=== PATIENT | female | born 1990 | race Caucasian/White ===

== ENCOUNTER 2017-10-09 01:14 | Inpatient (IN) | payer OTHER ==
[~2017-10-09] VITALS: Ht 154.9 cm; Wt 45.2 kg
[2017-10-09] MEDS ORDERED: ONDANSETRON 2MG/ML, 2ML ONE (01:48)
[2017-10-09 01:57] LABS: BASOPHILS # (AUTO) 0.04 x10^3/uL (0-0.1); BASOPHILS % (AUTO) 0 % (0-1); EOSINOPHILS % (AUTO) 0 % (1-7); LYMPHOCYTES # (AUTO) 1.28 x10^3/uL (1-3.4); LYMPHOCYTES % (AUTO) 14 % (22-44); MD NO; MEAN CORPUSCULAR HEMOGLOBIN 29.6 pg (27.0-34.8); MEAN CORPUSCULAR HGB CONC 34.2 g/dL (32.4-35.8); MEAN CORPUSCULAR VOLUME 86.7 fL (80-100); MEAN PLATELET VOLUME 8.2 fL (7.4-10.4); MONOCYTES # (AUTO) 0.23 x10^3/uL (0.2-0.8); MONOCYTES % (AUTO) 3 % (2-9); NEUTROPHILS # (AUTO) 7.91 x10^3/uL (1.8-6.8); NEUTROPHILS % (AUTO) 84 % (42-75); PLATELET COUNT 384 x10^3/uL (130-400); RED BLOOD COUNT 5.16 x10^6/uL (3.82-5.3); RED CELL DISTRIBUTION WIDTH 13.4 % (9.6-15.2)
[2017-10-09] MEDS ORDERED: SODIUM CHLORIDE 0.9% 1,000ML IVBOLUS ONE ×2 (02:00→07:30)
[2017-10-09] MEDS ORDERED: SODIUM CHLORIDE FLUSH 10ML SYR IVF ONE (02:00)
[2017-10-09] MEDS ORDERED: ONDANSETRON 2MG/ML, 2ML IVPush ONE (02:00)
[2017-10-09 02:06] LABS: ALBUMIN 4.6 g/dL (3.4-5.0); ANION GAP 11 mmol/L (5-15); CALCIUM 9.5 mg/dL (8.5-10.1); CHLORIDE 95 mmol/L (98-107); CREATININE 0.74 mg/dL (0.55-1.02)
[2017-10-09 02:10] LABS: TROPONIN I < 0.015 ng/mL (0.000-0.045)
[2017-10-09] MEDS ORDERED: ACETAMINOPHEN 500 MG TABLET ONE (02:20)
[2017-10-09] MEDS ORDERED: POTASSIUM CHLORIDE 20 MEQ TAB.ER.PRT ONE (02:20)
[2017-10-09] MEDS ORDERED: POTASSIUM CHLORIDE 40 MEQ in SODIUM CHLORIDE 0.9% 500 ML IV ONE (02:30)
[2017-10-09] MEDS ORDERED: POTASSIUM CHLORIDE 20 MEQ TAB.ER.PRT PO ONE (02:30)
[2017-10-09] MEDS ORDERED: ACETAMINOPHEN 325 MG TABLET PO ONE (02:30)
[2017-10-09] MEDS ORDERED: METOCLOPRAMIDE 5 MG/ML, 2ML IVPush ONE (03:00)
[2017-10-09] MEDS ORDERED: METOCLOPRAMIDE 5 MG/ML, 2ML ONE (03:42)
[2017-10-09] MEDS ORDERED: KETOROLAC 30 MG/1 ML ONE (03:53)
[2017-10-09] MEDS ORDERED: ACETAMINOPHEN 325 MG TABLET PO PRN (04:00)
[2017-10-09] MEDS ORDERED: KETOROLAC 30 MG/1 ML IVPush ONE (04:00)
[2017-10-09] MEDS: POTASSIUM CHLORIDE 10% 40 MEQ/30 ML UDC PO SCH ×3 (04:39→22:09)
[2017-10-09] MEDS ORDERED: NS + 20MEQ KCL 1,000 ML IV ONE (06:58)
[2017-10-09] MEDS ORDERED: ONDANSETRON 2MG/ML, 2ML IVPush PRN (07:30)
[2017-10-09] MEDS: NS + 20MEQ KCL 1,000 ML IV SCH ×2 (08:27→16:25)
[2017-10-09 09:15] VITALS: BP 105/73
[2017-10-09] MEDS ORDERED: PROCHLORPERAZINE 5 MG/ML, 2ML IVPush PRN (10:00)
[2017-10-09] MEDS ORDERED: MAALOX/HYOSCYAMINE/LIDOCAINE 45 ML BTL PO PRN (11:00)
[2017-10-09 12:38] LABS: ANION GAP 7 mmol/L (5-15); CALCIUM 7.1 mg/dL (8.5-10.1); CHLORIDE 107 mmol/L (98-107); CREATININE 0.59 mg/dL (0.55-1.02)
[2017-10-09 13:18] VITALS: BP 105/73
[2017-10-09 16:00] VITALS: BP 90/47
[2017-10-09 16:18] LABS: CLOSTRIDIUM DIFFICILE ANTIGEN NEGATIVE; CLOSTRIDIUM DIFFICILE TOXIN NEGATIVE (Negative)
[2017-10-09] MEDS ORDERED: MAGNESIUM SULFATE PMX 2GM/50ML 50 ML IV ONE (20:00)
[2017-10-09] MEDS ORDERED: POTASSIUM PHOSPHATE 44 MEQ in SODIUM CHLORIDE 0.9% 500 ML IV ONE (20:00)
[2017-10-09 20:21] VITALS: BP 95/57
[2017-10-10 01:33] VITALS: BP 84/50
[2017-10-10] MEDS: NS + 20MEQ KCL 1,000 ML IV SCH ×2 (02:05→08:30)
[2017-10-10 02:12] VITALS: BP 90/52
[2017-10-10 05:36] LABS: ANION GAP 8 mmol/L (5-15); CHLORIDE 108 mmol/L (98-107)
[2017-10-10 05:38] LABS: CREATININE 0.46 mg/dL (0.55-1.02)
[2017-10-10 07:30] VITALS: BP 95/58
[2017-10-10] MEDS: POTASSIUM CHLORIDE 10% 40 MEQ/30 ML UDC PO SCH (09:00)
[2017-10-10] MEDS ORDERED: PROC10TA78 PO (09:11)
== END 2017-10-10 11:10 | disposition home or self-care (01) | DRG 391 ==
LOC: ED 01:57 → EDIP 02:51 → 4WST 08:37
PROVIDERS: ADMIT Hospitalist; ATTEND Hospitalist
DX: R11.2 Nausea with vomiting, unspecified (principal); E43 Unspecified severe protein-calorie malnutrition; Z68.1 Body mass index [BMI] 19.9 or less, adult; E83.42 Hypomagnesemia; E86.0 Dehydration; E87.6 Hypokalemia; K21.9 Gastro-esophageal reflux disease without esophagitis; Z88.0 Allergy status to penicillin; Z79.899 Other long term (current) drug therapy
CPT/HCPCS: 36415; 71045; 80048; 82040; 83735; 84100; 84484; 84703; 85025; 87324; 93005; 96361; 96365; 96366; 96375; J1885; J2405; J3480; J0780; J2765; J3475; J7030; J7040

== ENCOUNTER 2017-10-28 13:30 | Inpatient (IN) | payer OTHER ==
[~2017-10-28] VITALS: Ht 152.4 cm; Wt 50.0 kg
[~2017-10-28 13:30] MED LIST: PROC10TA78 PO
[2017-10-28] MEDS ORDERED: PROMETHAZINE 25 MG/ML, 1ML IM STA (14:41)
[2017-10-28] MEDS ORDERED: PROMETHAZINE 25 MG/ML, 1ML ONE (14:46)
[2017-10-28] MEDS ORDERED: FAMOTIDINE 20 MG/2 ML ONE (14:47)
[2017-10-28] MEDS ORDERED: ONDANSETRON 2MG/ML, 2ML ONE ×2 (14:47→17:24)
[2017-10-28] MEDS ORDERED: SODIUM CHLORIDE FLUSH 10ML SYR IVF ONE (15:00)
[2017-10-28] MEDS ORDERED: ONDANSETRON 2MG/ML, 2ML IVPush ONE ×2 (15:00→17:30)
[2017-10-28] MEDS ORDERED: SODIUM CHLORIDE 0.9% 1,000ML IVBOLUS ONE (15:00)
[2017-10-28] MEDS ORDERED: FAMOTIDINE 20 MG/2 ML IVP ONE (15:00)
[2017-10-28 15:06] LABS: BASOPHILS # (AUTO) 0.05 x10^3/uL (0-0.1); BASOPHILS % (AUTO) 1 % (0-1); EOSINOPHILS # (AUTO) 0.01 x10^3/uL (0-0.4); EOSINOPHILS % (AUTO) 0 % (1-7); LYMPHOCYTES # (AUTO) 1.61 x10^3/uL (1-3.4); LYMPHOCYTES % (AUTO) 21 % (22-44); MD NO; MEAN CORPUSCULAR HEMOGLOBIN 29.9 pg (27.0-34.8); MEAN CORPUSCULAR HGB CONC 34.5 g/dL (32.4-35.8); MEAN CORPUSCULAR VOLUME 86.6 fL (80-100); MONOCYTES # (AUTO) 0.36 x10^3/uL (0.2-0.8); MONOCYTES % (AUTO) 5 % (2-9); NEUTROPHILS # (AUTO) 5.67 x10^3/uL (1.8-6.8); NEUTROPHILS % (AUTO) 74 % (42-75); PLATELET COUNT 368 x10^3/uL (130-400); RED BLOOD COUNT 5.45 x10^6/uL (3.82-5.3); RED CELL DISTRIBUTION WIDTH 13.1 % (9.6-15.2)
[2017-10-28 15:15] LABS: ALANINE AMINOTRANSFERASE 10 U/L (12-78); ALBUMIN 4.6 g/dL (3.4-5.0); CREATININE 0.78 mg/dL (0.55-1.02)
[2017-10-28 15:20] LABS: ALKALINE PHOSPHATASE 43 U/L (45-117); BILIRUBIN,TOTAL 0.5 mg/dL (0.2-1.0); TOTAL PROTEIN 8.6 g/dL (6.4-8.2)
[2017-10-28 15:23] LABS: ANION GAP 10 mmol/L (5-15); CHLORIDE 99 mmol/L (98-107)
[2017-10-28] MEDS ORDERED: POTASSIUM CHLORIDE 20 MEQ TAB.ER.PRT ONE (15:39)
[2017-10-28] MEDS ORDERED: MAGNESIUM SULFATE PMX 2GM/50ML 50 ML IV ONE (16:00)
[2017-10-28] MEDS ORDERED: POTASSIUM CHLORIDE 40 MEQ in SODIUM CHLORIDE 0.9% 500 ML IV ONE (16:00)
[2017-10-28] MEDS ORDERED: POTASSIUM CHLORIDE 20 MEQ TAB.ER.PRT PO ONE (16:00)
[2017-10-28] MEDS ORDERED: ONDANSETRON ODT 4 MG PO PRN (17:30)
[2017-10-28] MEDS ORDERED: ONDANSETRON 2MG/ML, 2ML IVPush PRN (17:30)
[2017-10-28] MEDS ORDERED: PROMETHAZINE 25 MG/ML, 1ML IM PRN (17:30)
[2017-10-28 19:40] VITALS: BP 108/70
[2017-10-28 20:51] LABS: MICROSCOPIC AUTO
[2017-10-28 20:56] LABS: CULTURE INDICATED? NO
[2017-10-28] MEDS: ENOXAPARIN 40 MG/0.4 ML SQ SCH (21:29)
[2017-10-28] MEDS: NS + 20MEQ KCL 1,000 ML IV SCH (21:29)
[2017-10-28 22:36] LABS: ANION GAP 11 mmol/L (5-15); CALCIUM 7.7 mg/dL (8.5-10.1); CHLORIDE 105 mmol/L (98-107); CREATININE 0.62 mg/dL (0.55-1.02)
[2017-10-29] MEDS ORDERED: OXYM15SP8 NAS (01:56)
[2017-10-29 02:00] VITALS: BP 90/47
[2017-10-29] MEDS ORDERED: ONDA4TAB13 SL (04:37)
[2017-10-29 04:41] VITALS: BP 118/70
[2017-10-29] MEDS: NS + 20MEQ KCL 1,000 ML IV SCH (04:51)
[2017-10-29 05:32] LABS: CALCIUM 7.3 mg/dL (8.5-10.1); CHLORIDE 104 mmol/L (98-107)
[2017-10-29 05:46] LABS: ALANINE AMINOTRANSFERASE 12 U/L (12-78); ALBUMIN 3.3 g/dL (3.4-5.0); ALKALINE PHOSPHATASE 31 U/L (45-117); ANION GAP 12 mmol/L (5-15); BILIRUBIN,TOTAL 0.8 mg/dL (0.2-1.0); CREATININE 0.63 mg/dL (0.55-1.02); THYROID STIMULATING HORMONE 0.734 mIU/L (0.358-3.740); TOTAL PROTEIN 5.9 g/dL (6.4-8.2)
[2017-10-29] MEDS ORDERED: POTASSIUM CHLORIDE 20 MEQ PACKET PO ONE (08:00)
[2017-10-29 08:43] VITALS: BP 94/58
[2017-10-29] MEDS: POTASSIUM CHLORIDE 10% 40 MEQ/30 ML UDC PO SCH ×2 (08:46→16:55)
[2017-10-29] MEDS ORDERED: POTASSIUM CHLORIDE 20 MEQ TAB.ER.PRT PO SCH (09:00)
[2017-10-29] MEDS: POTASSIUM CHLORIDE 40 MEQ in D5%-0.9% NACL 1,000 ML IV SCH ×2 (11:33→19:50)
[2017-10-29 14:31] VITALS: BP 97/57
[2017-10-29] MEDS: OXYMETAZOLINE NASAL SPRAY 0.05%, 15ML NAS PRN (17:00)
[2017-10-29 19:01] LABS: CHLORIDE,URINE RANDOM 214 mmol/L; SODIUM,URINE RANDOM 150 mmol/L
[2017-10-29] MEDS ORDERED: MAALOX/HYOSCYAMINE/LIDOCAINE 45 ML BTL PO ONE (19:30)
[2017-10-29 20:00] VITALS: BP 100/63
[2017-10-29] MEDS: ENOXAPARIN 40 MG/0.4 ML SQ SCH (20:20)
[2017-10-30] MEDS: POTASSIUM CHLORIDE 10% 40 MEQ/30 ML UDC PO SCH ×3 (01:12→17:30)
[2017-10-30 02:00] VITALS: BP 93/56
[2017-10-30] MEDS: POTASSIUM CHLORIDE 40 MEQ in D5%-0.9% NACL 1,000 ML IV SCH ×2 (02:52→15:53)
[2017-10-30 05:31] LABS: ANION GAP 5 mmol/L (5-15); CALCIUM 7.8 mg/dL (8.5-10.1); CHLORIDE 109 mmol/L (98-107); CREATININE 0.54 mg/dL (0.55-1.02)
[2017-10-30 07:20] VITALS: BP_SYST 84; BP_SYST 87; BP_DIAS 56; BP_DIAS 58
[2017-10-30] MEDS ORDERED: PROPOFOL 50 ML ONE (09:31)
[2017-10-30] MEDS ORDERED: MIDAZOLAM 1 MG/ML, 2ML ONE (09:32)
[2017-10-30] MEDS ORDERED: KETOROLAC 30 MG/1 ML ONE (09:48)
[2017-10-30] MEDS ORDERED: ONDANSETRON 2MG/ML, 2ML ONE (09:48)
[2017-10-30] MEDS ORDERED: MAGNESIUM SULFATE PMX 4GM/100M 100 ML IV ONE (11:00)
[2017-10-30] MEDS ORDERED: HYDROcodone/APAP 7.5-325MG/15ML UDC PO PRN (11:30)
[2017-10-30] MEDS ORDERED: FENTANYL PF 100 MCG/2ML IV PRN (11:30)
[2017-10-30] MEDS ORDERED: EPHEDRINE 50 MG/ML, 1ML IVPush PRN (11:30)
[2017-10-30] MEDS ORDERED: MIDAZOLAM 1 MG/ML, 2ML IV PRN (11:30)
[2017-10-30] MEDS ORDERED: ONDANSETRON 2MG/ML, 2ML IVPush PRN (11:30)
[2017-10-30] MEDS ORDERED: PROMETHAZINE 12.5 MG SUPP PR PRN (11:30)
[2017-10-30] MEDS ORDERED: ALBUTEROL SULFATE 2.5 MG/3 ML NPPB PRN (11:30)
[2017-10-30] MEDS ORDERED: OXYcodone 5 MG/5 ML ORAL.SOL UDC PO PRN (11:30)
[2017-10-30] MEDS ORDERED: DIAZEPAM 5 MG/ML, 2ML IVPush PRN (11:30)
[2017-10-30] MEDS ORDERED: MEPERIDINE/PF 25MG/0.5ML IVPush PRN (11:30)
[2017-10-30] MEDS ORDERED: ACETAMINOPHEN 325 MG TABLET PO PRN (11:30)
[2017-10-30] MEDS ORDERED: PROMETHAZINE 25 MG/ML, 1ML IV PRN (11:30)
[2017-10-30 12:02] VITALS: BP 100/77
[2017-10-30] MEDS ORDERED: POTASSIUM PHOSPHATE 44 MEQ in SODIUM CHLORIDE 0.9% 500 ML IV ONE (15:00)
[2017-10-30 15:48] LABS: CREATININE,URINE RANDOM < 13.00 mg/dL
[2017-10-30 18:47] VITALS: BP 99/71
[2017-10-30] MEDS: ENOXAPARIN 40 MG/0.4 ML SQ SCH (20:18)
[2017-10-30] MEDS: OXYMETAZOLINE NASAL SPRAY 0.05%, 15ML NAS PRN (20:18)
[2017-10-30 21:48] LABS: ANION GAP 6 mmol/L (5-15); CALCIUM 7.7 mg/dL (8.5-10.1); CHLORIDE 108 mmol/L (98-107); CREATININE 0.57 mg/dL (0.55-1.02)
[2017-10-30 21:49] LABS: ALBUMIN 3.2 g/dL (3.4-5.0)
[2017-10-31] MEDS: POTASSIUM CHLORIDE 10% 40 MEQ/30 ML UDC PO SCH (01:19)
[2017-10-31 01:31] VITALS: BP 89/49
[2017-10-31] MEDS: ACETAMINOPHEN 325 MG TABLET PO PRN ×2 (03:19→21:09)
[2017-10-31] MEDS ORDERED: CHOLECALCIFEROL 1,000 UNIT TABLET PO SCH (09:00)
[2017-10-31 09:13] VITALS: BP 95/60
[2017-10-31] MEDS ORDERED: ERGOCALCIFEROL 50,000 UNIT CAPSULE PO SCH (10:00)
[2017-10-31 15:34] VITALS: BP 99/64
[2017-10-31 19:38] VITALS: BP 102/68
[2017-11-01] VITALS (7 sets, daily range): BP systolic 93–124; BP diastolic 60–88
[2017-11-01] MEDS ORDERED: COSYNTROPIN 0.25 MG IV ONE ×2 (05:00→06:00)
[2017-11-01 06:00] LABS: BASOPHILS # (AUTO) 0.05 x10^3/uL (0-0.1); BASOPHILS % (AUTO) 1 % (0-1); EOSINOPHILS # (AUTO) 0.16 x10^3/uL (0-0.4); EOSINOPHILS % (AUTO) 2 % (1-7); LYMPHOCYTES # (AUTO) 3.09 x10^3/uL (1-3.4); LYMPHOCYTES % (AUTO) 45 % (22-44); MD NO; MEAN CORPUSCULAR HGB CONC 34.2 g/dL (32.4-35.8); MEAN CORPUSCULAR VOLUME 87.8 fL (80-100); MEAN PLATELET VOLUME 8.6 fL (7.4-10.4); MONOCYTES # (AUTO) 0.49 x10^3/uL (0.2-0.8); MONOCYTES % (AUTO) 7 % (2-9); NEUTROPHILS # (AUTO) 3.15 x10^3/uL (1.8-6.8); NEUTROPHILS % (AUTO) 45 % (42-75); PLATELET COUNT 300 x10^3/uL (130-400); RED BLOOD COUNT 4.72 x10^6/uL (3.82-5.3); RED CELL DISTRIBUTION WIDTH 13.4 % (9.6-15.2)
[2017-11-01 06:04] LABS: CHLORIDE 104 mmol/L (98-107)
[2017-11-01 06:17] LABS: ALANINE AMINOTRANSFERASE 18 U/L (12-78); ALBUMIN 3.8 g/dL (3.4-5.0); ALKALINE PHOSPHATASE 35 U/L (45-117); ANION GAP 9 mmol/L (5-15); BILIRUBIN,TOTAL 0.5 mg/dL (0.2-1.0); CALCIUM 8.7 mg/dL (8.5-10.1); CREATININE 0.72 mg/dL (0.55-1.02)
[2017-11-01] MEDS ORDERED: MAGNESIUM SULFATE PMX 4GM/100M 100 ML IV ONE (06:30)
[2017-11-01] MEDS: POTASSIUM CHLORIDE 20 MEQ TAB.ER.PRT PO SCH ×3 (06:40→21:19)
[2017-11-01] MEDS ORDERED: OMNIPAQUE 350 MG/ML, 100ML BOTTLE ONE (11:26)
[2017-11-01] MEDS ORDERED: AMITRIPTYLINE 25 MG TABLET PO SCH (21:00)
[2017-11-02 03:04] VITALS: BP 97/65
[2017-11-02 03:05] VITALS: BP_SYST 138; BP_SYST 98; BP_DIAS 101; BP_DIAS 67
[2017-11-02] MEDS: POTASSIUM CHLORIDE 20 MEQ TAB.ER.PRT PO SCH (06:22)
[2017-11-02 07:10] VITALS: BP 103/72
[2017-11-02 07:46] LABS: ALBUMIN 3.9 g/dL (3.4-5.0); ANION GAP 7 mmol/L (5-15); CALCIUM 8.9 mg/dL (8.5-10.1); CHLORIDE 103 mmol/L (98-107); CREATININE 0.76 mg/dL (0.55-1.02)
[2017-11-02] MEDS ORDERED: AMIT25TA PO (08:55)
[2017-11-02] MEDS ORDERED: ERGO500017 PO (08:55)
== END 2017-11-02 13:15 | disposition home or self-care (01) | DRG 392 ==
LOC: ED 17:09 → EDIP 17:10 → ED 17:13 → 4WST 18:37 → DCLOUNGE 11-02 13:00
PROVIDERS: ADMIT Internal Medicine; ATTEND Hospitalist
PROC: 0DJ08ZZ Inspection of Upper Intestinal Tract, Via Natural or Artificial Opening Endoscopic (ICD-10-PCS; principal; 2017-10-30 09:30)
DX: K52.9 Noninfective gastroenteritis and colitis, unspecified (principal); K55.1 Chronic vascular disorders of intestine; I95.89 Other hypotension; K76.89 Other specified diseases of liver; E83.51 Hypocalcemia; E83.39 Other disorders of phosphorus metabolism; E83.42 Hypomagnesemia; G43.A0 Cyclical vomiting, in migraine, not intractable; K31.84 Gastroparesis; N83.201 Unspecified ovarian cyst, right side; N83.202 Unspecified ovarian cyst, left side; F12.90 Cannabis use, unspecified, uncomplicated; E86.0 Dehydration; T73.0XXA Starvation, initial encounter; N92.0 Excessive and frequent menstruation with regular cycle; K21.9 Gastro-esophageal reflux disease without esophagitis; E87.6 Hypokalemia; Z88.6 Allergy status to analgesic agent; Z87.891 Personal history of nicotine dependence; Z88.0 Allergy status to penicillin; Z79.899 Other long term (current) drug therapy; Z79.1 Long term (current) use of non-steroidal anti-inflammatories (NSAID); Z79.2 Long term (current) use of antibiotics
CPT/HCPCS: 36415; 74177; 78264; 80048; 80053; 81001; 82040; 82306; 82310; 82436; 82533; 82570; 83690; 83735; 83970; 84100; 84132; 84133; 84134; 84300; 84443; 84703; 85025; 93005; 96361; 96372; 96374; 96375; J1650; J1885; J2250; J2405; J2550; J2704; J3480; J7042; Q9967; A9541; C9898; J0834; J3475; J7030; J7040; S0028

== ENCOUNTER 2018-05-23 06:03 | Emergency (ER) | payer SELFPAY ==
[~2018-05-23] VITALS: Ht 157.5 cm; Wt 41.1 kg
[~2018-05-23 06:03] MED LIST changes: +AMIT25TA PO; +ERGO500017 PO; +ONDA4TAB13 SL; +OXYM15SP8 NAS
[2018-05-23] MEDS ORDERED: MAALOX/HYOSCYAMINE/LIDOCAINE 45 ML BTL PO ONE (06:30)
[2018-05-23] MEDS ORDERED: PROMETHAZINE 25 MG/ML, 1ML IM ONE (06:30)
[2018-05-23] MEDS ORDERED: SODIUM CHLORIDE 0.9% 1,000ML IVBOLUS ONE (06:30)
[2018-05-23] MEDS ORDERED: HALOPERIDOL 5 MG/ML IVPush ONE (06:30)
[2018-05-23] MEDS ORDERED: SODIUM CHLORIDE FLUSH 10ML SYR IVF ONE (06:30)
[2018-05-23] MEDS ORDERED: FAMOTIDINE 20 MG/2 ML IVP ONE (06:30)
[2018-05-23] MEDS ORDERED: MAALOX/HYOSCYAMINE/LIDOCAINE 45 ML BTL ONE (06:38)
[2018-05-23] MEDS ORDERED: HALOPERIDOL 5 MG/ML ONE (06:38)
[2018-05-23] MEDS ORDERED: FAMOTIDINE 20 MG/2 ML ONE (06:39)
[2018-05-23 06:48] LABS: BASOPHILS # (AUTO) 0.03 x10^3/uL (0-0.1); BASOPHILS % (AUTO) 0 % (0-1); EOSINOPHILS % (AUTO) 0 % (1-7); LYMPHOCYTES # (AUTO) 1.44 x10^3/uL (1-3.4); LYMPHOCYTES % (AUTO) 18 % (22-44); MD NO; MEAN CORPUSCULAR HEMOGLOBIN 29.8 pg (27.0-34.8); MEAN CORPUSCULAR HGB CONC 34.7 g/dL (32.4-35.8); MEAN PLATELET VOLUME 7.6 fL (7.4-10.4); MONOCYTES # (AUTO) 0.51 x10^3/uL (0.2-0.8); MONOCYTES % (AUTO) 6 % (2-9); NEUTROPHILS # (AUTO) 6.03 x10^3/uL (1.8-6.8); NEUTROPHILS % (AUTO) 75 % (42-75); PLATELET COUNT 355 x10^3/uL (130-400); RED BLOOD COUNT 5.08 x10^6/uL (3.82-5.3); RED CELL DISTRIBUTION WIDTH 13.1 % (9.6-15.2)
[2018-05-23 07:01] LABS: ALANINE AMINOTRANSFERASE 23 U/L (12-78); ALBUMIN 4.1 g/dL (3.4-5.0); CALCIUM 8.4 mg/dL (8.5-10.1); CHLORIDE 94 mmol/L (98-107); CREATININE 1.15 mg/dL (0.55-1.02)
[2018-05-23 07:06] LABS: ALKALINE PHOSPHATASE 51 U/L (45-117); BILIRUBIN,TOTAL 0.7 mg/dL (0.2-1.0); TOTAL PROTEIN 8.8 g/dL (6.4-8.2)
[2018-05-23 07:33] LABS: ANION GAP 14 mmol/L (5-15)
[2018-05-23] MEDS ORDERED: NS + 40MEQ KCL 1,000 ML IV ONE ×2 (08:00→08:08)
[2018-05-23] MEDS ORDERED: POTASSIUM CHLORIDE 20 MEQ TAB.ER.PRT ONE (08:14)
[2018-05-23] MEDS ORDERED: POTASSIUM CHLORIDE 20 MEQ TAB.ER.PRT PO ONE (08:30)
[2018-05-23 08:31] LABS: MICROSCOPIC AUTO
[2018-05-23 08:34] LABS: CULTURE INDICATED? YES
[2018-05-23 12:50] VITALS: BP 93/40
== END 2018-05-23 13:12 | disposition home or self-care (01) ==
LOC: ED 06:34
DX: E87.6 Hypokalemia (principal); R11.2 Nausea with vomiting, unspecified; K21.9 Gastro-esophageal reflux disease without esophagitis
CPT/HCPCS: 36415; 80053; 81001; 83690; 84703; 85025; 87086; 96361; 96365; 96366; 96375; 99285; J1630; J3480; J7030; S0028

== ENCOUNTER 2018-09-25 14:03 | Inpatient (IN) | payer SELFPAY ==
[~2018-09-25] VITALS: Ht 152.4 cm; Wt 47.0 kg
--- NOTE | 2018-09-25 14:29 | NUR ---
Pt in gown, given ua cup, states she is unable to go at this time, awaiting MD cain
[2018-09-25] MEDS ORDERED: DIPHENHYDRAMINE 50 MG/ML, 1ML ONE (14:53)
[2018-09-25] MEDS ORDERED: MORPHINE SULFATE 4 MG/ML, 1ML ONE (14:54)
[2018-09-25] MEDS ORDERED: METOCLOPRAMIDE 5 MG/ML, 2ML ONE (14:54)
[2018-09-25] MEDS ORDERED: FAMOTIDINE 20 MG/2 ML ONE (14:54)
[2018-09-25] MEDS ORDERED: DIPHENHYDRAMINE 50 MG/ML, 1ML IVPush ONE (15:00)
[2018-09-25] MEDS ORDERED: MORPHINE SULFATE 4 MG/ML, 1ML IVPush PRN (15:00)
[2018-09-25] MEDS ORDERED: FAMOTIDINE 20 MG/2 ML IVP ONE (15:00)
[2018-09-25] MEDS ORDERED: METOCLOPRAMIDE 5 MG/ML, 2ML IVPush ONE (15:00)
[2018-09-25] MEDS ORDERED: SODIUM CHLORIDE FLUSH 10ML SYR IVF ONE (15:00)
[2018-09-25 15:19] LABS: BASOPHILS # (AUTO) 0.08 x10^3/uL (0-0.1); BASOPHILS % (AUTO) 1 % (0-1); EOSINOPHILS % (AUTO) 0 % (1-7); LYMPHOCYTES # (AUTO) 1.36 x10^3/uL (1-3.4); LYMPHOCYTES % (AUTO) 10 % (22-44); MD NO; MEAN CORPUSCULAR HEMOGLOBIN 30.1 pg (27.0-34.8); MEAN CORPUSCULAR HGB CONC 34.2 g/dL (32.4-35.8); MEAN CORPUSCULAR VOLUME 87.8 fL (80-100); MEAN PLATELET VOLUME 8.3 fL (7.4-10.4); MONOCYTES # (AUTO) 0.43 x10^3/uL (0.2-0.8); MONOCYTES % (AUTO) 3 % (2-9); NEUTROPHILS # (AUTO) 12.06 x10^3/uL (1.8-6.8); NEUTROPHILS % (AUTO) 87 % (42-75); PLATELET COUNT 367 x10^3/uL (130-400); RED BLOOD COUNT 5.09 x10^6/uL (3.82-5.3); RED CELL DISTRIBUTION WIDTH 13.3 % (9.6-15.2)
[2018-09-25 15:31] LABS: ALBUMIN 4.6 g/dL (3.4-5.0); CALCIUM 9.1 mg/dL (8.5-10.1); CHLORIDE 92 mmol/L (98-107)
[2018-09-25 15:38] LABS: ALANINE AMINOTRANSFERASE 18 U/L (12-78); ALKALINE PHOSPHATASE 48 U/L (45-117); BILIRUBIN,TOTAL 1.2 mg/dL (0.2-1.0); CREATININE 0.89 mg/dL (0.55-1.02); TOTAL PROTEIN 8.2 g/dL (6.4-8.2)
[2018-09-25 15:40] LABS: MICROSCOPIC INDICATED
[2018-09-25 15:41] LABS: CULTURE INDICATED? NO
[2018-09-25 15:42] LABS: ANION GAP 17 mmol/L (5-15)
[2018-09-25] MEDS ORDERED: POTASSIUM CHLORIDE 40 MEQ in SODIUM CHLORIDE 0.9% 500 ML IV ONE (16:00)
--- NOTE | 2018-09-25 16:02 | NUR ---
Pt updated on labs (hypokalemia), meds infusing, ekg completed. Pt on cont cardiac and pulse ox monitoring. 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
--- NOTE | 2018-09-25 16:37 | NUR ---
Pt reports tolerable level of pain after med administration
--- NOTE | 2018-09-25 16:54 | NUR ---
Report to shaina wolfe. pt ready for transport.
[2018-09-25] MEDS ORDERED: ACETAMINOPHEN 325 MG TABLET PO PRN (17:00)
[2018-09-25] MEDS ORDERED: ENALAPRILAT 1.25 MG/ML, 2ML IVPush PRN (17:00)
[2018-09-25] MEDS ORDERED: DOCUSATE 100 MG CAPSULE PO PRN (17:00)
[2018-09-25] MEDS ORDERED: BISACODYL 10 MG SUPP PR PRN (17:00)
[2018-09-25] MEDS ORDERED: POLYETHYLENE GLYCOL 17 GM PACKET PO PRN (17:00)
[2018-09-25] MEDS ORDERED: ONDANSETRON 2MG/ML, 2ML IVPush PRN (17:00)
[2018-09-25] MEDS ORDERED: ENOXAPARIN 40 MG/0.4 ML SQ SCH (17:00)
[2018-09-25] MEDS ORDERED: MAGNESIUM SULFATE PMX 2GM/50ML 50 ML IV ONE (17:00)
[2018-09-25 17:32] VITALS: BP 144/75
[2018-09-25] MEDS: KETOROLAC 30 MG/1 ML IV PRN (18:42)
[2018-09-25] MEDS: POTASSIUM CHLORIDE 20 MEQ TAB.ER.PRT PO SCH (18:42)
[2018-09-25 19:34] VITALS: BP 101/67
[2018-09-25] MEDS: NS + 20MEQ KCL 1,000 ML IV SCH (23:08)
[2018-09-25 23:27] LABS: RAPID INFLUENZA A Negative (Negative); RAPID INFLUENZA B Negative (Negative)
[2018-09-26 02:24] VITALS: BP 89/49
[2018-09-26 02:33] VITALS: BP 92/54
[2018-09-26] MEDS: KETOROLAC 30 MG/1 ML IV PRN (04:18)
[2018-09-26 04:46] LABS: BASOPHILS # (AUTO) 0.04 x10^3/uL (0-0.1); BASOPHILS % (AUTO) 0 % (0-1); EOSINOPHILS # (AUTO) 0.06 x10^3/uL (0-0.4); EOSINOPHILS % (AUTO) 0 % (1-7); LYMPHOCYTES # (AUTO) 2.76 x10^3/uL (1-3.4); LYMPHOCYTES % (AUTO) 21 % (22-44); MD NO; MEAN CORPUSCULAR HEMOGLOBIN 29.8 pg (27.0-34.8); MEAN CORPUSCULAR HGB CONC 33.7 g/dL (32.4-35.8); MEAN CORPUSCULAR VOLUME 88.2 fL (80-100); MEAN PLATELET VOLUME 8.3 fL (7.4-10.4); MONOCYTES # (AUTO) 0.98 x10^3/uL (0.2-0.8); MONOCYTES % (AUTO) 8 % (2-9); NEUTROPHILS # (AUTO) 9.24 x10^3/uL (1.8-6.8); NEUTROPHILS % (AUTO) 71 % (42-75); PLATELET COUNT 303 x10^3/uL (130-400); RED BLOOD COUNT 4.41 x10^6/uL (3.82-5.3); RED CELL DISTRIBUTION WIDTH 13.4 % (9.6-15.2)
[2018-09-26 04:57] LABS: ANION GAP 10 mmol/L (5-15); CALCIUM 7.6 mg/dL (8.5-10.1); CHLORIDE 102 mmol/L (98-107); CREATININE 0.73 mg/dL (0.55-1.02)
[2018-09-26] MEDS ORDERED: POTASSIUM CHLORIDE 40 MEQ in SODIUM CHLORIDE 0.9% 500 ML IV ONE (07:30)
[2018-09-26] MEDS: NS + 20MEQ KCL 1,000 ML IV SCH (08:20)
[2018-09-26] MEDS: POTASSIUM CHLORIDE 20 MEQ TAB.ER.PRT PO SCH (08:30)
[2018-09-26 08:34] VITALS: BP 100/62
[2018-09-26] MEDS ORDERED: ONDA4TAB7 PO (14:38)
== END 2018-09-26 17:56 | disposition home or self-care (01) | DRG 641 ==
LOC: ED 15:14 → EDIP 16:46 → 4WST 17:14
PROVIDERS: ADMIT Hospitalist; ATTEND Hospitalist
DX: E87.6 Hypokalemia (principal); R17 Unspecified jaundice; E87.1 Hypo-osmolality and hyponatremia; E86.9 Volume depletion, unspecified; D72.828 Other elevated white blood cell count; F12.90 Cannabis use, unspecified, uncomplicated; F17.200 Nicotine dependence, unspecified, uncomplicated; R73.9 Hyperglycemia, unspecified; R79.89 Other specified abnormal findings of blood chemistry
CPT/HCPCS: 36415; 87400; J3490; 80048; 80053; 81001; 83690; 83735; 84132; 84703; 85025; 93005; 96374; 96375; G0378; J1650; J1885; J2405; J3480; J1200; J2765; J3475; J7040

== ENCOUNTER 2018-11-02 10:40 | Inpatient (IN) | payer SELFPAY ==
[~2018-11-02] VITALS: Ht 152.4 cm; Wt 47.5 kg
[~2018-11-02 10:40] MED LIST changes: +ONDA4TAB7 PO
[2018-11-02] MEDS ORDERED: PANTOPRAZOLE 40 MG IV ONE (11:25)
[2018-11-02] MEDS ORDERED: FAMOTIDINE 20 MG/2 ML ONE (11:25)
[2018-11-02 11:27] LABS: BASOPHILS # (AUTO) 0.05 x10^3/uL (0-0.1); BASOPHILS % (AUTO) 1 % (0-1); EOSINOPHILS # (AUTO) 0.12 x10^3/uL (0-0.4); EOSINOPHILS % (AUTO) 2 % (1-7); LYMPHOCYTES % (AUTO) 34 % (22-44); MD NO; MEAN CORPUSCULAR HEMOGLOBIN 29.8 pg (27.0-34.8); MEAN CORPUSCULAR HGB CONC 34.5 g/dL (32.4-35.8); MEAN CORPUSCULAR VOLUME 86.2 fL (80-100); MEAN PLATELET VOLUME 8.1 fL (7.4-10.4); MONOCYTES # (AUTO) 0.61 x10^3/uL (0.2-0.8); MONOCYTES % (AUTO) 8 % (2-9); NEUTROPHILS # (AUTO) 4.31 x10^3/uL (1.8-6.8); NEUTROPHILS % (AUTO) 56 % (42-75); PLATELET COUNT 386 x10^3/uL (130-400); RED BLOOD COUNT 5.45 x10^6/uL (3.82-5.3)
[2018-11-02] MEDS ORDERED: FAMOTIDINE 20 MG/2 ML IVPush ONE (11:30)
[2018-11-02] MEDS ORDERED: SODIUM CHLORIDE 0.9% 1,000ML IVBOLUS ONE (11:30)
[2018-11-02] MEDS ORDERED: PANTOPRAZOLE 40 MG IV IVPush ONE (11:30)
[2018-11-02 11:39] LABS: ALANINE AMINOTRANSFERASE 22 U/L (12-78); ALBUMIN 4.4 g/dL (3.4-5.0); ANION GAP 12 mmol/L (5-15); CALCIUM 9.4 mg/dL (8.5-10.1); CHLORIDE 100 mmol/L (98-107)
[2018-11-02 11:53] LABS: ALKALINE PHOSPHATASE 57 U/L (45-117); BILIRUBIN,TOTAL 0.9 mg/dL (0.2-1.0); CREATININE 0.81 mg/dL (0.55-1.02); TOTAL PROTEIN 8.4 g/dL (6.4-8.2)
[2018-11-02] MEDS ORDERED: POTASSIUM CHLORIDE 40 MEQ in SODIUM CHLORIDE 0.9% 500 ML IV ONE ×3 (12:00→17:00)
--- NOTE | 2018-11-02 12:56 | NUR ---
pt sitting up on gurney awake & calm, responds approp to staff, occas dry heaves, comfort measures provided, BF at BS, call light within reach.
--- NOTE | 2018-11-02 13:45 | NUR ---
LUNCH RN: PT UP TO RESTROOM WITH STEADY GAIT. BACK IN BED, ALL MONITORS IN PLACE. CALL LIGHT WITHIN REACH
[2018-11-02] MEDS ORDERED: ONDANSETRON 2MG/ML, 2ML IVPush PRN (14:00)
[2018-11-02] MEDS ORDERED: MAGNESIUM SULFATE PMX 2GM/50ML 50 ML IV ONE (14:00)
[2018-11-02] MEDS ORDERED: LABETALOL 5MG/ML, 20ML IVPush PRN (14:00)
--- NOTE | 2018-11-02 14:10 | NUR ---
pt upright on gurney able to doze off easily, responds approp to staff, comfort measures provided, call light within reach.
[2018-11-02 14:18] LABS: FREE T4 (FREE THYROXINE) 1.11 ng/dL (0.76-1.46)
[2018-11-02] MEDS ORDERED: HEPARIN 5,000 UNITS/ML, 1ML ONE ×2 (14:44→21:15)
[2018-11-02] MEDS: SODIUM CHLORIDE 0.9% 1,000 ML IV SCH ×6 (14:52→20:22)
[2018-11-02] MEDS: HEPARIN 5,000 UNITS/ML, 1ML SQ SCH ×2 (14:53→21:19)
--- NOTE | 2018-11-02 15:10 | NUR ---
pt remains upright on gurney able to doze off easily, responds approp to staff, comfort measures provided, call light within reach.
--- NOTE | 2018-11-02 16:05 | NUR ---
pt upright on gurney mostly sleeping, responds approp to staff, comfort measures provided, call light within reach.
--- NOTE | 2018-11-02 17:00 | NUR ---
pt remains upright on gurney able to doze off easily, responds approp to staff, comfort measures provided, call light within reach.
[2018-11-02 17:22] LABS: ANION GAP 11 mmol/L (5-15); CALCIUM 6.5 mg/dL (8.5-10.1); CHLORIDE 113 mmol/L (98-107)
[2018-11-02 17:26] LABS: TROPONIN I < 0.015 ng/mL (0.000-0.045)
--- NOTE | 2018-11-02 18:03 | NUR ---
pt upright on gurney mostly sleeping, responds approp to staff, comfort measures provided, call light within reach.
--- NOTE | 2018-11-02 18:59 | NUR ---
report given to Kimmie
--- NOTE | 2018-11-02 19:11 | NUR ---
pt up to rr with steady gait, provided pt with urine cup
[2018-11-02 19:44] LABS: HCG UR SG 1.015 (1.003-1.030); MICROSCOPIC NOT IND
[2018-11-02 19:47] LABS: CULTURE INDICATED? NO
[2018-11-02 20:00] LABS: AMPHETAMINE SCREEN, URINE Negative (Negative); BARBITURATE SCREEN, URINE Negative (Negative); BENZODIAZEPINE SCREEN, URINE Negative (Negative); CANNABINOID SCREEN, URINE Positive (Negative); COCAINE SCREEN, URINE Negative (Negative); METHADONE SCREEN, URINE Negative (Negative); OPIATE SCREEN, URINE Negative (Negative)
[2018-11-02] MEDS ORDERED: MAALOX/HYOSCYAMINE/LIDOCAINE 45 ML BTL ONE (20:25)
[2018-11-02] MEDS: MAALOX/HYOSCYAMINE/LIDOCAINE 45 ML BTL PO PRN (20:26)
[2018-11-02] MEDS ORDERED: morphine SULFATE 10 MG/ML, 1ML ONE (21:15)
[2018-11-02] MEDS: morphine SULFATE 10 MG/ML, 1ML IVPush PRN (21:23)
--- NOTE | 2018-11-02 21:24 | NUR ---
pt up to rr with steady gait. medicated with prn pain medication, see mar.
[2018-11-02 21:27] LABS: TROPONIN I < 0.015 ng/mL (0.000-0.045)
--- NOTE | 2018-11-02 23:19 | NUR ---
ASSISTED PT WITH TRANSFERRING ONTO HOSPITAL BED, MONITORS IN PLACE, IV FLUIDS INFUSING, CALL LIGHT WITHIN REACH.
[2018-11-02] MEDS ORDERED: PROMETHAZINE 25 MG/ML, 1ML ONE (23:21)
[2018-11-02] MEDS: PROMETHAZINE 25 MG/ML, 1ML IM PRN (23:26)
--- NOTE | 2018-11-02 23:31 | NUR ---
pt resting on gurney, stated "pain is better", monitors in place, call light within reach.
--- NOTE | 2018-11-03 03:50 | NUR ---
PT SITTING UP WATCHING TV, DENIES PAIN OR NAUSEA, PROVIDED PT WITH CLEAR LIQUIDS PER HER REQUEST, DENIES FURTHER NEEDS, MONITORS IN PLACE, CALL LIGHT WITHIN REACH. AWAITING ROOM FOR TRANSFER
[2018-11-03] MEDS: SODIUM CHLORIDE 0.9% 1,000 ML IV SCH ×3 (05:06→22:12)
--- NOTE | 2018-11-03 05:11 | NUR ---
DR GIBSON PAGED AND UPDATED R/G PT'S B/P-=, ORDER RECEIVED FOR NORMAL SALINE 1L IV BOLUS NOW.
[2018-11-03] MEDS ORDERED: SODIUM CHLORIDE 0.9% 1,000ML IVBOLUS ONE (05:30)
[2018-11-03] MEDS ORDERED: HEPARIN 5,000 UNITS/ML, 1ML ONE (05:30)
[2018-11-03 05:40] LABS: ALANINE AMINOTRANSFERASE 14 U/L (12-78); ALBUMIN 3.2 g/dL (3.4-5.0); ANION GAP 10 mmol/L (5-15); CALCIUM 6.8 mg/dL (8.5-10.1); CHLORIDE 107 mmol/L (98-107); CREATININE 0.68 mg/dL (0.55-1.02)
[2018-11-03 05:50] LABS: ALKALINE PHOSPHATASE 35 U/L (45-117); BILIRUBIN,TOTAL 0.6 mg/dL (0.2-1.0); THYROID STIMULATING HORMONE 0.467 mIU/L (0.358-3.740); TOTAL PROTEIN 5.7 g/dL (6.4-8.2)
--- NOTE | 2018-11-03 05:50 | NUR ---
DR GIBSON PAGED AND UPDATED REGARDING PT'S POTASSIUM LEVEL 1.8, ORDER RECEIVED FOR 10 KCL IV PER HOUR X 4 DOSES, 20 KCL PO X 1 DOSE NOW, REPEAT BNP 4 HOURS AFTER KCL INFUSIONS
[2018-11-03 05:59] LABS: BASOPHILS # (AUTO) 0.03 x10^3/uL (0-0.1); BASOPHILS % (AUTO) 0 % (0-1); EOSINOPHILS # (AUTO) 0.25 x10^3/uL (0-0.4); EOSINOPHILS % (AUTO) 2 % (1-7); LYMPHOCYTES % (AUTO) 19 % (22-44); MD NO; MEAN CORPUSCULAR HEMOGLOBIN 30.6 pg (27.0-34.8); MEAN CORPUSCULAR HGB CONC 35.2 g/dL (32.4-35.8); MEAN CORPUSCULAR VOLUME 86.8 fL (80-100); MEAN PLATELET VOLUME 8.3 fL (7.4-10.4); MONOCYTES # (AUTO) 1.04 x10^3/uL (0.2-0.8); MONOCYTES % (AUTO) 8 % (2-9); NEUTROPHILS # (AUTO) 9.07 x10^3/uL (1.8-6.8); NEUTROPHILS % (AUTO) 71 % (42-75); PLATELET COUNT 295 x10^3/uL (130-400); RED BLOOD COUNT 3.96 x10^6/uL (3.82-5.3); RED CELL DISTRIBUTION WIDTH 13.1 % (9.6-15.2)
[2018-11-03] MEDS ORDERED: POTASSIUM CHLORIDE 20 MEQ TAB.ER.PRT ONE ×3 (06:26→17:41)
[2018-11-03] MEDS ORDERED: POTASSIUM CHLORIDE 40 MEQ in SODIUM CHLORIDE 0.9% 500 ML IV ONE ×3 (06:30→15:30)
[2018-11-03] MEDS ORDERED: POTASSIUM CHLORIDE 20 MEQ TAB.ER.PRT PO ONE ×3 (06:30→18:00)
[2018-11-03] MEDS: HEPARIN 5,000 UNITS/ML, 1ML SQ SCH (06:35)
--- NOTE | 2018-11-03 06:55 | NUR ---
REPORT GIVEN TO ZACHERY MASON
--- NOTE | 2018-11-03 07:51 | NUR ---
assumed care of pt while primary rn on break. pt sleeping at this time.
--- NOTE | 2018-11-03 08:00 | NUR ---
cardiac rhythm strip printed and placed on chart
[2018-11-03] MEDS ORDERED: MAGNESIUM SULFATE 6 GM in SODIUM CHLORIDE 0.9% 150 ML IV ONE (08:30)
[2018-11-03] MEDS ORDERED: POTASSIUM CHLORIDE 20 MEQ PACKET PO ONE (08:30)
[2018-11-03] MEDS ORDERED: CALCIUM CHLORIDE 13.6 MEQ in SODIUM CHLORIDE 0.9% 100 ML IV ONE ×2 (08:30→14:00)
[2018-11-03] MEDS ORDERED: MAGNESIUM SULFATE PMX 2GM/50ML 50 ML IV ONE ×3 (08:30)
[2018-11-03 08:44] LABS: ANION GAP 12 mmol/L (5-15); CHLORIDE 112 mmol/L (98-107); CREATININE 0.51 mg/dL (0.55-1.02)
[2018-11-03] MEDS ORDERED: POTASSIUM CHLORIDE 20 MEQ PACKET ONE (09:20)
[2018-11-03] MEDS ORDERED: ONDANSETRON 2MG/ML, 2ML ONE (09:24)
[2018-11-03] MEDS ORDERED: PANTOPRAZOLE 40 MG IV ONE (09:25)
[2018-11-03] MEDS: PANTOPRAZOLE 40 MG IV IVPush SCH (09:31)
[2018-11-03] MEDS ORDERED: PROMETHAZINE 25 MG/ML, 1ML ONE (10:21)
[2018-11-03 11:47] LABS: ANION GAP 8 mmol/L (5-15); CALCIUM 7.6 mg/dL (8.5-10.1); CHLORIDE 111 mmol/L (98-107); CREATININE 0.49 mg/dL (0.55-1.02)
--- NOTE | 2018-11-03 12:49 | NUR ---
cardiac rhythm strip and vitals printed and placed on chart.
--- NOTE | 2018-11-03 13:00 | NUR ---
PT MOVED TO T2 AND CENTRAL LINE PLACE SEVERAL CALLS TO DR RYDER RE PT CONDITION AND K LEVELS HAVE BEEN MADE
[2018-11-03 13:27] LABS: CHLORIDE 107 mmol/L (98-107)
[2018-11-03 13:35] LABS: ANION GAP 8 mmol/L (5-15); CALCIUM 7.5 mg/dL (8.5-10.1); CREATININE 0.57 mg/dL (0.55-1.02)
[2018-11-03] MEDS ORDERED: ENOXAPARIN 40 MG/0.4 ML ONE (14:26)
[2018-11-03] MEDS: ENOXAPARIN 40 MG/0.4 ML SQ SCH (14:35)
[2018-11-03] MEDS ORDERED: CALCIUM CARBONATE 500 MG TAB.CHEW ONE (14:43)
[2018-11-03] MEDS: CALCIUM CARBONATE 500 MG TABLET PO SCH ×3 (14:49→22:13)
--- NOTE | 2018-11-03 16:16 | NUR ---
cardiac rhythm strip printed and placed on chart.
[2018-11-03 17:04] LABS: ANION GAP 6 mmol/L (5-15); CALCIUM 8.2 mg/dL (8.5-10.1); CHLORIDE 109 mmol/L (98-107); CREATININE 0.55 mg/dL (0.55-1.02)
[2018-11-03 17:34] LABS: CHLORIDE,URINE RANDOM 199 mmol/L; POTASSIUM,URINE RANDOM 30 mmol/L; SODIUM,URINE RANDOM 150 mmol/L
[2018-11-03 17:36] LABS: CREATININE,URINE RANDOM < 13.00 mg/dL
[2018-11-03] MEDS ORDERED: METOCLOPRAMIDE 5 MG/ML, 2ML ONE (18:02)
[2018-11-03] MEDS: METOCLOPRAMIDE 5 MG/ML, 2ML IVPush PRN (18:06)
--- NOTE | 2018-11-03 19:19 | NUR ---
REPORT RECEIVED FROM ZACHERY REYNOLDS. ASSUMED CARE OF PT. PT BACK FROM CT, [facility], MEDICATED PER eMAR, GIVEN PABLO PAW TO KEEP WARM. PT COMFORTABLE, CALL LIGHT IN REACH
[2018-11-03] MEDS ORDERED: OMNIPAQUE 350 MG/ML, 100ML BOTTLE ONE (19:21)
--- NOTE | 2018-11-03 20:11 | NUR ---
IV REMOVED FROM RIGHT AC AT PT'S REQUEST. IV CATH REMOVED INTACT DRESSING APPLIED.
--- NOTE | 2018-11-03 20:30 | NUR ---
PT RESTING QUIETLY, TEXTING ON PHONE, NO DISTRESS NOTED, DENIES ANY PROBLEMS AT THIS TIME
--- NOTE | 2018-11-03 20:43 | NUR ---
ATTEMPTED TO CALL REPORT, RN IN PT ROOM, WILL CALL BACK
[2018-11-03] MEDS: POTASSIUM CHLORIDE 20 MEQ TAB.ER.PRT PO SCH (22:13)
[2018-11-03 22:57] VITALS: BP 94/57
[2018-11-04 00:32] LABS: CHLORIDE,URINE RANDOM 185 mmol/L; POTASSIUM,URINE RANDOM 19 mmol/L; SODIUM,URINE RANDOM 154 mmol/L
[2018-11-04 00:50] LABS: OSMOLALITY,URINE 397 mOsm/kg (500-850)
[2018-11-04 02:12] VITALS: BP 93/59
[2018-11-04] MEDS: POTASSIUM CHLORIDE 20 MEQ TAB.ER.PRT PO SCH ×4 (06:05→21:30)
[2018-11-04 06:23] LABS: BASOPHILS # (AUTO) 0.03 x10^3/uL (0-0.1); BASOPHILS % (AUTO) 1 % (0-1); EOSINOPHILS # (AUTO) 0.15 x10^3/uL (0-0.4); EOSINOPHILS % (AUTO) 2 % (1-7); LYMPHOCYTES # (AUTO) 2.52 x10^3/uL (1-3.4); LYMPHOCYTES % (AUTO) 33 % (22-44); MD NO; MEAN CORPUSCULAR HEMOGLOBIN 30.4 pg (27.0-34.8); MEAN CORPUSCULAR HGB CONC 34.7 g/dL (32.4-35.8); MEAN CORPUSCULAR VOLUME 87.7 fL (80-100); MEAN PLATELET VOLUME 8.5 fL (7.4-10.4); MONOCYTES # (AUTO) 0.78 x10^3/uL (0.2-0.8); MONOCYTES % (AUTO) 10 % (2-9); NEUTROPHILS # (AUTO) 4.06 x10^3/uL (1.8-6.8); NEUTROPHILS % (AUTO) 54 % (42-75); PLATELET COUNT 258 x10^3/uL (130-400); RED BLOOD COUNT 3.82 x10^6/uL (3.82-5.3); RED CELL DISTRIBUTION WIDTH 13.2 % (9.6-15.2)
[2018-11-04 06:31] LABS: ANION GAP 4 mmol/L (5-15); CALCIUM 7.5 mg/dL (8.5-10.1); CHLORIDE 108 mmol/L (98-107); CREATININE 0.54 mg/dL (0.55-1.02)
[2018-11-04] MEDS: PANTOPRAZOLE 40 MG IV IVPush SCH (07:30)
[2018-11-04] MEDS: SODIUM CHLORIDE 0.9% 1,000 ML IV SCH ×2 (08:00→19:59)
[2018-11-04] MEDS ORDERED: MAGNESIUM SULFATE PMX 2GM/50ML 50 ML IV ONE ×2 (08:00→17:00)
[2018-11-04] MEDS ORDERED: CALCIUM CHLORIDE 13.6 MEQ in SODIUM CHLORIDE 0.9% 100 ML IV ONE (08:00)
[2018-11-04] MEDS ORDERED: POTASSIUM CHLORIDE 40 MEQ in SODIUM CHLORIDE 0.9% 500 ML IV ONE (08:00)
[2018-11-04] MEDS ORDERED: MAGNESIUM SULFATE PMX 4GM/100M 100 ML IV ONE (08:00)
[2018-11-04 08:10] VITALS: BP 95/59
[2018-11-04] MEDS: CALCIUM CARBONATE 500 MG TABLET PO SCH ×3 (09:28→21:30)
[2018-11-04] MEDS ORDERED: SODIUM CHLORIDE 0.9% 1,000 ML IV SCH (09:30)
[2018-11-04] MEDS: morphine SULFATE 10 MG/ML, 1ML IVPush PRN (10:39)
[2018-11-04 12:42] LABS: ANION GAP 4 mmol/L (5-15); CALCIUM 8.4 mg/dL (8.5-10.1); CHLORIDE 109 mmol/L (98-107)
[2018-11-04 12:43] LABS: CREATININE 0.42 mg/dL (0.55-1.02)
[2018-11-04 13:35] VITALS: BP 120/79
[2018-11-04] MEDS: METOCLOPRAMIDE 5 MG/ML, 2ML IVPush PRN (13:38)
[2018-11-04] MEDS ORDERED: POTASSIUM PHOSPHATE 44 MEQ in SODIUM CHLORIDE 0.9% 500 ML IV ONE (17:00)
[2018-11-04] MEDS: ENOXAPARIN 40 MG/0.4 ML SQ SCH (18:06)
[2018-11-04 18:23] LABS: ANION GAP 6 mmol/L (5-15); CALCIUM 7.7 mg/dL (8.5-10.1); CHLORIDE 105 mmol/L (98-107); CREATININE 0.49 mg/dL (0.55-1.02)
[2018-11-04 20:11] VITALS: BP 97/63
[2018-11-05 00:08] LABS: ANION GAP 5 mmol/L (5-15); CALCIUM 7.7 mg/dL (8.5-10.1); CHLORIDE 106 mmol/L (98-107); CREATININE 0.48 mg/dL (0.55-1.02)
[2018-11-05 00:57] VITALS: BP 97/64
[2018-11-05] MEDS: SODIUM CHLORIDE 0.9% 1,000 ML IV SCH ×2 (05:40→14:18)
[2018-11-05] MEDS: POTASSIUM CHLORIDE 20 MEQ TAB.ER.PRT PO SCH (05:40)
[2018-11-05 06:17] LABS: BASOPHILS # (AUTO) 0.04 x10^3/uL (0-0.1); BASOPHILS % (AUTO) 0 % (0-1); EOSINOPHILS # (AUTO) 0.09 x10^3/uL (0-0.4); EOSINOPHILS % (AUTO) 1 % (1-7); LYMPHOCYTES # (AUTO) 2.17 x10^3/uL (1-3.4); LYMPHOCYTES % (AUTO) 24 % (22-44); MD NO; MEAN CORPUSCULAR HEMOGLOBIN 30.5 pg (27.0-34.8); MEAN CORPUSCULAR HGB CONC 34.5 g/dL (32.4-35.8); MEAN CORPUSCULAR VOLUME 88.3 fL (80-100); MEAN PLATELET VOLUME 8.5 fL (7.4-10.4); MONOCYTES # (AUTO) 0.99 x10^3/uL (0.2-0.8); MONOCYTES % (AUTO) 11 % (2-9); NEUTROPHILS # (AUTO) 5.72 x10^3/uL (1.8-6.8); NEUTROPHILS % (AUTO) 64 % (42-75); PLATELET COUNT 269 x10^3/uL (130-400); RED BLOOD COUNT 3.95 x10^6/uL (3.82-5.3); RED CELL DISTRIBUTION WIDTH 13.4 % (9.6-15.2)
[2018-11-05 06:26] LABS: ANION GAP 5 mmol/L (5-15); CALCIUM 7.7 mg/dL (8.5-10.1); CHLORIDE 108 mmol/L (98-107); CREATININE 0.57 mg/dL (0.55-1.02)
[2018-11-05 08:40] VITALS: BP 116/76
[2018-11-05] MEDS: CALCIUM CARBONATE 500 MG TABLET PO SCH ×3 (11:00→19:47)
[2018-11-05] MEDS: MAALOX/HYOSCYAMINE/LIDOCAINE 45 ML BTL PO PRN (11:18)
[2018-11-05 12:17] LABS: ALANINE AMINOTRANSFERASE 15 U/L (12-78); ALKALINE PHOSPHATASE 44 U/L (45-117); BILIRUBIN,TOTAL 0.5 mg/dL (0.2-1.0); TOTAL PROTEIN 5.8 g/dL (6.4-8.2)
[2018-11-05 13:38] VITALS: BP 112/74
[2018-11-05] MEDS: PROMETHAZINE 25 MG/ML, 1ML IM PRN ×2 (13:48→18:25)
[2018-11-05 14:29] LABS: ANION GAP 8 mmol/L (5-15); CALCIUM 8.1 mg/dL (8.5-10.1); CHLORIDE 105 mmol/L (98-107); CREATININE 0.59 mg/dL (0.55-1.02)
[2018-11-05] MEDS ORDERED: MAGNESIUM SULFATE 6 GM in SODIUM CHLORIDE 0.9% 150 ML IV ONE (15:30)
[2018-11-05] MEDS ORDERED: POTASSIUM PHOSPHATE 44 MEQ in SODIUM CHLORIDE 0.9% 500 ML IV ONE (15:30)
[2018-11-05] MEDS ORDERED: POTASSIUM CHLORIDE 40 MEQ in SODIUM CHLORIDE 0.9% 500 ML IV ONE (15:30)
[2018-11-05] MEDS: PANTOPRAZOLE 20MG TABLET PO SCH (16:17)
[2018-11-05] MEDS: ENOXAPARIN 40 MG/0.4 ML SQ SCH (18:17)
[2018-11-05] MEDS: morphine SULFATE 10 MG/ML, 1ML IVPush PRN (18:17)
[2018-11-05 20:07] VITALS: BP 97/61
[2018-11-05] MEDS ORDERED: POTASSIUM CHLORIDE 40 MEQ in SODIUM CHLORIDE 0.9% 100 ML IV ONE (23:30)
[2018-11-06] MEDS: morphine SULFATE 10 MG/ML, 1ML IVPush PRN (00:31)
[2018-11-06] MEDS: PROMETHAZINE 25 MG/ML, 1ML IM PRN (00:32)
[2018-11-06] MEDS: MAALOX/HYOSCYAMINE/LIDOCAINE 45 ML BTL PO PRN (00:32)
[2018-11-06 01:14] VITALS: BP 124/80
[2018-11-06 01:19] LABS: ANION GAP 9 mmol/L (5-15); CALCIUM 8.1 mg/dL (8.5-10.1); CHLORIDE 103 mmol/L (98-107); CREATININE 0.56 mg/dL (0.55-1.02)
[2018-11-06] MEDS: PANTOPRAZOLE 20MG TABLET PO SCH ×2 (04:57→17:00)
[2018-11-06] MEDS: CALCIUM CARBONATE 500 MG TABLET PO SCH ×4 (04:57→20:40)
[2018-11-06 05:37] LABS: CHLORIDE 106 mmol/L (98-107)
[2018-11-06 05:40] LABS: ANION GAP 6 mmol/L (5-15); CREATININE 0.45 mg/dL (0.55-1.02)
[2018-11-06 07:14] VITALS: BP 120/78
[2018-11-06] MEDS ORDERED: POTASSIUM CHLORIDE 20 MEQ TAB.ER.PRT PO SCH (09:00)
[2018-11-06] MEDS: SODIUM CHLORIDE 0.9% 1,000 ML IV SCH (11:18)
[2018-11-06 14:00] VITALS: BP 107/68
[2018-11-06] MEDS: ENOXAPARIN 40 MG/0.4 ML SQ SCH (17:00)
[2018-11-06 20:05] VITALS: BP 98/63
[2018-11-07] MEDS: SODIUM CHLORIDE 0.9% 1,000 ML IV SCH (01:07)
[2018-11-07 01:32] VITALS: BP 93/61
[2018-11-07] MEDS: PANTOPRAZOLE 20MG TABLET PO SCH (05:29)
[2018-11-07] MEDS: CALCIUM CARBONATE 500 MG TABLET PO SCH ×2 (05:29→11:00)
[2018-11-07 05:59] LABS: ALBUMIN 3.6 g/dL (3.4-5.0); ANION GAP 6 mmol/L (5-15); CALCIUM 8.7 mg/dL (8.5-10.1); CHLORIDE 103 mmol/L (98-107)
[2018-11-07 06:04] LABS: ALANINE AMINOTRANSFERASE 25 U/L (12-78); ALKALINE PHOSPHATASE 45 U/L (45-117); BILIRUBIN,TOTAL 0.3 mg/dL (0.2-1.0); CREATININE 0.57 mg/dL (0.55-1.02)
[2018-11-07] MEDS ORDERED: POTA20TA6 PO (07:19)
[2018-11-07] MEDS ORDERED: Maalox/Hyoscyamine/Lidocaine PO (07:19)
[2018-11-07] MEDS ORDERED: MAGN400T50 PO (07:19)
[2018-11-07] MEDS ORDERED: PANT20TA3 PO (07:19)
[2018-11-07] MEDS ORDERED: CALC-666 PO (07:19)
[2018-11-07] MEDS ORDERED: MAGNESIUM SULFATE PMX 2GM/50ML 50 ML IV ONE ×2 (07:30→10:00)
[2018-11-07] MEDS ORDERED: POTASSIUM CHLORIDE 20 MEQ TAB.ER.PRT PO ONE (07:30)
[2018-11-07 07:49] VITALS: BP 96/64
[2018-11-07] MEDS ORDERED: POTASSIUM CHLORIDE 20 MEQ TAB.ER.PRT PO SCH (09:00)
[2018-11-07] MEDS ORDERED: MAGNESIUM OXIDE 400 MG TABLET PO SCH (09:00)
[2018-11-07 12:46] VITALS: BP 99/64
== END 2018-11-07 15:19 | disposition home or self-care (01) | DRG 917 ==
LOC: ED 11:25 → EDIP 12:18 → 5SO 11-03 21:50 → 4EST 11-05 13:37
PROVIDERS: ADMIT Internal Medicine; ATTEND Internal Medicine
DX: T40.7X1A Poisoning by cannabis (derivatives), accidental (unintentional), initial encounter (principal); E43 Unspecified severe protein-calorie malnutrition; K50.90 Crohn's disease, unspecified, without complications; E65 Localized adiposity; E83.39 Other disorders of phosphorus metabolism; E83.42 Hypomagnesemia; E83.51 Hypocalcemia; R73.9 Hyperglycemia, unspecified; E86.0 Dehydration; E87.6 Hypokalemia; F12.90 Cannabis use, unspecified, uncomplicated; K21.9 Gastro-esophageal reflux disease without esophagitis; R11.2 Nausea with vomiting, unspecified; Y92.89 Other specified places as the place of occurrence of the external cause; Z71.51 Drug abuse counseling and surveillance of drug abuser; Z68.20 Body mass index [BMI] 20.0-20.9, adult
CPT/HCPCS: 36415; 99285; J3490; 71045; 74177; 76700; 80048; 80053; 80307; 81003; 81025; 82330; 82436; 82533; 82570; 82784; 83516; 83605; 83690; 83735; 83930; 83935; 84100; 84132; 84133; 84300; 84439; 84443; 84484; 84703; 85025; 86677; 93005; G0378; J1644; J1650; J2405; J2550; J3475; J3480; Q9967; C9113; J2270; J2765; J7030; J7040